=== PATIENT | female | born 1965 | race Caucasian/White ===

== ENCOUNTER 2017-05-30 11:08 | Emergency (ER) | payer MEDICAID ==
[~2017-05-30] VITALS: Ht 5367.7 cm; Wt 54.0 kg
[~2017-05-30 11:08] MED LIST: NO HOME MEDS; PROC-8 PEG; SUCR1ORA2 PO; VALA100027 PO
[2017-05-30] MEDS ORDERED: haloperidol lactate 5mg/ml inj IM ONE (12:25)
[2017-05-30] MEDS ORDERED: diphenhydrAMINE 25mg capsule PO ONE (12:25)
[2017-05-30] MEDS ORDERED: LORazepam 1 MG tablet PO ONE (12:25)
[2017-05-30 12:36] LABS: BASOPHILS # (AUTO) 0.1 X10'3 (0-0.2); BASOPHILS % (AUTO) 0.7 % (0-1); EOSINOPHILS # (AUTO) 0.2 X10'3 (0-0.9); EOSINOPHILS % (AUTO) 1.7 % (0-6); HEMATOCRIT 41.9 % (35.0-45.0); HEMOGLOBIN 14.8 g/dl (12.0-16.0); LYMPHOCYTES # (AUTO) 3.2 X10'3 (1.1-4.8); LYMPHOCYTES % (AUTO) 32.6 % (21-51); MEAN CORPUSCULAR HEMOGLOBIN 31.5 PG (27.0-31.0); MEAN CORPUSCULAR HGB CONC 35.3 % (33.0-36.5); MEAN CORPUSCULAR VOLUME 89.2 FL (78-98); MEAN PLATELET VOLUME 6.9 FL (7.4-10.4); MONOCYTES # (AUTO) 0.5 X10'3 (0-0.9); MONOCYTES % (AUTO) 5.1 % (2-12); NEUTROPHILS # (AUTO) 5.8 X10'3 (1.8-7.7); NEUTROPHILS % (AUTO) 59.9 % (42-75); PLATELET COUNT 384 X10'3 (140-440); RED BLOOD COUNT 4.69 X10'6 (4.20-5.60); RED CELL DISTRIBUTION WIDTH 13.5 % (11.5-14.5); WHITE BLOOD COUNT 9.8 X10'3 (4.5-11.0)
[2017-05-30 12:44] LABS: CLARITY,URINE CLEAR (Clear); COLOR,URINE STRAW (Yellow); GLUCOSE, URINE NEGATIVE (Neg); KETONES,URINE NEGATIVE (Neg); LEUKOCYTE ESTERASE ,URINE NEGATIVE (Neg); NITRITES, URINE NEGATIVE (Neg); OCCULT BLOOD,URINE SMALL (Neg); PROTEIN,URINE NEGATIVE (Neg); UA COLLECTION TYPE CLN CATCH MIDSTREAM; UROBILINOGEN,URINE 0.2 E.U/dL (0.2-1.0)
[2017-05-30 12:46] LABS: URINE HCG NEGATIVE (NEG)
[2017-05-30 12:51] LABS: SQUAMOUS EPITHELIAL CELL,UR FEW /LPF (FEW)
[2017-05-30 12:52] LABS: BACTERIA,URINE FEW /HPF (Neg); RBC,URINE 0-2 /HPF (0-2); WBC,URINE 0-4 /HPF (0-4)
[2017-05-30 12:55] LABS: URINE AMPHETAMINE SCREEN NEGATIVE (Neg); URINE BARBITUATE SCREEN NEGATIVE (Neg); URINE BENZODIAZEPINES SCREEN POSITIVE (Neg); URINE CANNABINOID SCREEN POSITIVE (Neg); URINE COCAINE SCREEN NEGATIVE (Neg); URINE METHADONE SCREEN NEGATIVE (Neg); URINE OPIATE SCREEN NEGATIVE (Neg); URINE PHENCYCLIDINE SCREEN NEGATIVE (Neg)
[2017-05-30 13:00] LABS: ALANINE AMINOTRANSFERASE 29 U/L (12-78); ALBUMIN 4.2 G/DL (3.4-5.0); ALKALINE PHOSPHATASE 88 IU/L (46-116); ANION GAP 9 (8-16); ASPARTATE AMINO TRANSFERASE 25 U/L (10-37); BILIRUBIN,TOTAL 0.3 MG/DL (0.1-1.0); BLOOD UREA NITROGEN 9 MG/DL (7-18); CALCIUM 9.4 MG/DL (8.5-10.1); CHLORIDE 106 MMOL/L (99-107); CREATININE 0.69 MG/DL (0.40-0.90); GLUCOSE 103 MG/DL (70-104); POTASSIUM 3.8 MMOL/L (3.5-5.1); SODIUM 142 MMOL/L (135-145); TOTAL CARBON DIOXIDE 26.7 MMOL/L (24-32); TOTAL PROTEIN 8.4 G/DL (6.4-8.2); eGFR 90 ML/MIN
[2017-05-30 13:04] LABS: ETHANOL < 0.010 GM/DL (0.0-0.010)
[2017-05-30] MEDS ORDERED: DIAZ5TAB PO (20:43)
[2017-05-30] MEDS ORDERED: MOME0.132 (20:43)
[2017-05-30] MEDS ORDERED: ALB0.5UD IH (20:43)
[2017-05-30] MEDS ORDERED: HYDR-3686 PO ×2 (20:43→21:55)
[2017-05-30] MEDS ORDERED: DULO-31 PO (20:43)
[2017-05-30] MEDS ORDERED: ALBU18HF2 IH (21:55)
[2017-05-30] MEDS: diazepam 5mg tablet PO SCH (22:35)
[2017-05-31] MEDS: albuterol 2.5 MG/3 ML nebule NEB SCH ×2 (07:10→10:47)
[2017-05-31] MEDS: diazepam 5mg tablet PO SCH ×2 (07:52→13:05)
[2017-05-31] MEDS ORDERED: duloxetine 30mg CAPSULE.DR PO SCH (08:00)
[2017-05-31 16:11] VITALS: BP 139/93
[2017-05-31] MEDS ORDERED: hydrOXYzine 25 MG tablet PO SCH (21:00)
== END 2017-05-31 14:45 ==
LOC: ER 11:09
DX: F29 Unspecified psychosis not due to a substance or known physiological condition (principal); J44.9 Chronic obstructive pulmonary disease, unspecified; G89.29 Other chronic pain; F31.9 Bipolar disorder, unspecified; F41.9 Anxiety disorder, unspecified; Z98.890 Other specified postprocedural states; F12.90 Cannabis use, unspecified, uncomplicated; Z88.8 Allergy status to other drugs, medicaments and biological substances; Z91.040 Latex allergy status; Z90.710 Acquired absence of both cervix and uterus
CPT/HCPCS: 36415; 80053; 80305; 80320; 81001; 81025; 84443; 85025; 94640; 94760; 96372; 99285; J1630; Q0163; 99284

== ENCOUNTER 2017-08-01 13:15 | Emergency (ER) | payer MEDICAID ==
[~2017-08-01] VITALS: Ht 160 cm; Wt 49.4 kg
[~2017-08-01 13:15] MED LIST changes: +ALBU18HF2 IH; +DIAZ5TAB PO; +DULO-31 PO; +HYDR-3686 PO; +MOME0.132; -NO HOME MEDS; -PROC-8 PEG; -SUCR1ORA2 PO; -VALA100027 PO
[2017-08-01 16:25] LABS: BASOPHILS % (AUTO) 0.2 % (0-1); EOSINOPHILS # (AUTO) 0.1 X10'3 (0-0.9); EOSINOPHILS % (AUTO) 1.4 % (0-6); HEMATOCRIT 42.1 % (35.0-45.0); HEMOGLOBIN 14.6 g/dl (12.0-16.0); LYMPHOCYTES # (AUTO) 2.2 X10'3 (1.1-4.8); LYMPHOCYTES % (AUTO) 22.9 % (21-51); MEAN CORPUSCULAR HEMOGLOBIN 31.4 PG (27.0-31.0); MEAN CORPUSCULAR HGB CONC 34.6 % (33.0-36.5); MEAN CORPUSCULAR VOLUME 90.7 FL (78-98); MEAN PLATELET VOLUME 7.6 FL (7.4-10.4); MONOCYTES # (AUTO) 0.4 X10'3 (0-0.9); MONOCYTES % (AUTO) 4.5 % (2-12); NEUTROPHILS # (AUTO) 6.8 X10'3 (1.8-7.7); PLATELET COUNT 356 X10'3 (140-440); RED BLOOD COUNT 4.64 X10'6 (4.20-5.60); RED CELL DISTRIBUTION WIDTH 13.9 % (11.5-14.5); WHITE BLOOD COUNT 9.6 X10'3 (4.5-11.0)
[2017-08-01 16:41] LABS: ALANINE AMINOTRANSFERASE 17 U/L (12-78); ALBUMIN 4.3 G/DL (3.4-5.0); ALBUMIN/GLOBULIN RATIO 1.2 (1.1-1.5); ALKALINE PHOSPHATASE 70 IU/L (46-116); ANION GAP 14 (8-16); ASPARTATE AMINO TRANSFERASE 13 U/L (10-37); BILIRUBIN,TOTAL 0.3 MG/DL (0.1-1.0); BLOOD UREA NITROGEN 8 MG/DL (7-18); CALCIUM 9.4 MG/DL (8.5-10.1); CHLORIDE 105 MMOL/L (99-107); CREATININE 0.73 MG/DL (0.40-0.90); GLUCOSE 147 MG/DL (70-104); LIPASE 59 U/L (73-393); MAGNESIUM 1.9 MG/DL (1.5-2.4); POTASSIUM 3.5 MMOL/L (3.5-5.1); SODIUM 143 MMOL/L (135-145); TOTAL CARBON DIOXIDE 24.5 MMOL/L (24-32); eGFR 84 ML/MIN
[2017-08-01] MEDS ORDERED: LORazepam 1 MG tablet PO ONE (17:40)
[2017-08-01] MEDS ORDERED: LORazepam 0.5 MG tablet PO ONE (17:45)
[2017-08-01 18:48] VITALS: BP 135/92
== END 2017-08-01 18:50 | disposition home or self-care (01) ==
LOC: ER 13:16
DX: R10.11 Right upper quadrant pain (principal); R07.89 Other chest pain; R06.02 Shortness of breath; J02.9 Acute pharyngitis, unspecified; R11.0 Nausea; J44.9 Chronic obstructive pulmonary disease, unspecified; G89.29 Other chronic pain; F17.200 Nicotine dependence, unspecified, uncomplicated; F12.10 Cannabis abuse, uncomplicated; Z90.710 Acquired absence of both cervix and uterus; Z98.890 Other specified postprocedural states; Z88.8 Allergy status to other drugs, medicaments and biological substances; Z91.040 Latex allergy status; Z79.899 Other long term (current) drug therapy
CPT/HCPCS: 36415; 71045; 76536; 76700; 80053; 83690; 83735; 83880; 84484; 85025; 93005; 99285

== ENCOUNTER 2017-10-03 09:44 | Emergency (ER) | payer MEDICAID ==
[~2017-10-03] VITALS: Ht 160 cm; Wt 46.0 kg
[2017-10-03 10:05] LABS: BASOPHILS # (AUTO) 0.1 X10'3 (0-0.2); BASOPHILS % (AUTO) 0.8 % (0-1); EOSINOPHILS % (AUTO) 0.4 % (0-6); HEMOGLOBIN 15.3 g/dl (12.0-16.0); LYMPHOCYTES # (AUTO) 2.1 X10'3 (1.1-4.8); LYMPHOCYTES % (AUTO) 16.6 % (21-51); MEAN CORPUSCULAR HEMOGLOBIN 31.8 PG (27.0-31.0); MEAN CORPUSCULAR VOLUME 93.5 FL (78-98); MEAN PLATELET VOLUME 7.1 FL (7.4-10.4); MONOCYTES # (AUTO) 0.5 X10'3 (0-0.9); MONOCYTES % (AUTO) 4.1 % (2-12); NEUTROPHILS % (AUTO) 78.1 % (42-75); PLATELET COUNT 336 X10'3 (140-440); RED BLOOD COUNT 4.81 X10'6 (4.20-5.60); RED CELL DISTRIBUTION WIDTH 13.9 % (11.5-14.5); WHITE BLOOD COUNT 12.8 X10'3 (4.5-11.0)
[2017-10-03] MEDS ORDERED: metoprolol tartrate 1mg/ml inj IV ONE (10:10)
[2017-10-03] MEDS ORDERED: aspirin 81mg tab.chew PO ONE (10:10)
[2017-10-03] MEDS ORDERED: ondansetron/PF 4mg/2ml inj IV ONE (10:10)
[2017-10-03 10:15] LABS: PARTIAL THROMBOPLASTIN TIME 25 SECONDS (22-32); PROTHROMBIN TIME 10.2 SECONDS (9.0-12.0)
[2017-10-03 10:20] LABS: ALANINE AMINOTRANSFERASE 15 U/L (12-78); ALBUMIN/GLOBULIN RATIO 1.1 (1.1-1.5); ALKALINE PHOSPHATASE 82 IU/L (46-116); ANION GAP 10 (8-16); ASPARTATE AMINO TRANSFERASE 12 U/L (10-37); BILIRUBIN,TOTAL 0.4 MG/DL (0.1-1.0); BLOOD UREA NITROGEN 9 MG/DL (7-18); BUN/CREATININE RATIO 12.9 (6.6-38.0); CALCIUM 9.1 MG/DL (8.5-10.1); CHLORIDE 107 MMOL/L (99-107); GLUCOSE 112 MG/DL (70-104); POTASSIUM 3.8 MMOL/L (3.5-5.1); SODIUM 142 MMOL/L (135-145); TOTAL PROTEIN 7.8 G/DL (6.4-8.2); eGFR 89 ML/MIN
[2017-10-03] MEDS: nitroGLYCERIN 0.4mg SUBLingual tab SL PRN ×2 (10:21→11:13)
[2017-10-03] MEDS ORDERED: LORazepam 2 mg/ml vial IV ONE (10:35)
[2017-10-03 10:40] LABS: CLARITY,URINE CLEAR (Clear); COLOR,URINE YELLOW (Yellow); GLUCOSE, URINE NEGATIVE (Neg); KETONES,URINE NEGATIVE (Neg); LEUKOCYTE ESTERASE ,URINE NEGATIVE (Neg); NITRITES, URINE NEGATIVE (Neg); OCCULT BLOOD,URINE TRACE-INTACT (Neg); PROTEIN,URINE NEGATIVE (Neg); UROBILINOGEN,URINE 0.2 E.U/dL (0.2-1.0)
[2017-10-03 10:44] LABS: UA COLLECTION TYPE CLN CATCH MIDSTREAM
[2017-10-03 10:46] LABS: BACTERIA,URINE NONE SEEN /HPF (Neg); MUCUS STRANDS NONE SEEN /LPF (Neg); RBC,URINE 0-2 /HPF (0-2); SQUAMOUS EPITHELIAL CELL,UR FEW /LPF (FEW); WBC,URINE NONE SEEN /HPF (0-4)
[2017-10-03 10:53] LABS: URINE AMPHETAMINE SCREEN NEGATIVE (Neg); URINE BARBITUATE SCREEN NEGATIVE (Neg); URINE BENZODIAZEPINES SCREEN NEGATIVE (Neg); URINE CANNABINOID SCREEN POSITIVE (Neg); URINE COCAINE SCREEN NEGATIVE (Neg); URINE METHADONE SCREEN NEGATIVE (Neg); URINE OPIATE SCREEN NEGATIVE (Neg); URINE PHENCYCLIDINE SCREEN NEGATIVE (Neg)
[2017-10-03] MEDS ORDERED: DULO-31 PO (10:53)
[2017-10-03] MEDS ORDERED: DIAZ5TAB PO (10:53)
[2017-10-03 11:13] VITALS: BP 135/88
== END 2017-10-03 11:14 | disposition home or self-care (01) ==
LOC: ER 09:44
DX: R07.9 Chest pain, unspecified (principal); F41.9 Anxiety disorder, unspecified; F31.9 Bipolar disorder, unspecified; J44.9 Chronic obstructive pulmonary disease, unspecified; F17.200 Nicotine dependence, unspecified, uncomplicated; F12.90 Cannabis use, unspecified, uncomplicated; Z90.710 Acquired absence of both cervix and uterus; Z91.14 Patient's other noncompliance with medication regimen; Z91.040 Latex allergy status; Z88.8 Allergy status to other drugs, medicaments and biological substances; Z79.899 Other long term (current) drug therapy
CPT/HCPCS: 36415; 71045; 80053; 80305; 81001; 83880; 84484; 85025; 85610; 85730; 93005; 96374; 96375; 99285; J2060; J2405; J7030

== ENCOUNTER 2018-08-28 12:54 | Emergency (ER) | payer MEDICAID ==
[~2018-08-28] VITALS: Ht 160 cm; Wt 63.6 kg
[2018-08-28 13:27] VITALS: BP 147/92
[2018-08-28] MEDS ORDERED: HYDROcodone/acetaminophen 10/325mg tab PO ONE (15:40)
== END 2018-08-28 16:36 | disposition home or self-care (01) ==
LOC: ER 12:54
DX: M72.2 Plantar fascial fibromatosis (principal); J44.9 Chronic obstructive pulmonary disease, unspecified; G89.29 Other chronic pain; F17.200 Nicotine dependence, unspecified, uncomplicated; F12.90 Cannabis use, unspecified, uncomplicated; Z90.710 Acquired absence of both cervix and uterus; Z98.890 Other specified postprocedural states; Z91.040 Latex allergy status; Z88.6 Allergy status to analgesic agent; Z88.8 Allergy status to other drugs, medicaments and biological substances; Z79.899 Other long term (current) drug therapy
CPT/HCPCS: 99282

== ENCOUNTER 2019-03-27 13:27 | Emergency (ER) | payer MEDICAID ==
[~2019-03-27] VITALS: Ht 165.1 cm; Wt 60.0 kg
[2019-03-27 13:53] LABS: BASOPHILS # (AUTO) 0.1 X10'3 (0-0.2); EOSINOPHILS # (AUTO) 0.1 X10'3 (0-0.9); EOSINOPHILS % (AUTO) 1.8 % (0-6); HEMATOCRIT 41.7 % (35.0-45.0); HEMOGLOBIN 14.3 g/dl (12.0-16.0); LYMPHOCYTES # (AUTO) 3.1 X10'3 (1.1-4.8); LYMPHOCYTES % (AUTO) 42.2 % (21-51); MEAN CORPUSCULAR HEMOGLOBIN 31.2 PG (27.0-31.0); MEAN CORPUSCULAR HGB CONC 34.2 g/dL (33.0-36.5); MEAN CORPUSCULAR VOLUME 91.2 FL (78-98); MONOCYTES # (AUTO) 0.5 X10'3 (0-0.9); MONOCYTES % (AUTO) 6.9 % (2-12); NEUTROPHILS # (AUTO) 3.5 X10'3 (1.8-7.7); NEUTROPHILS % (AUTO) 48.1 % (42-75); PLATELET COUNT 319 X10'3 (140-440); RED BLOOD COUNT 4.57 X10'6 (4.20-5.60); RED CELL DISTRIBUTION WIDTH 13.8 % (11.5-14.5); WHITE BLOOD COUNT 7.3 X10'3 (4.5-11.0)
[2019-03-27] MEDS ORDERED: normal saline 1000ML IV soln IVB ONE (13:55)
[2019-03-27] MEDS ORDERED: normal saline 1000ml 1,000 ML IV ONE (13:55)
[2019-03-27 14:03] LABS: PARTIAL THROMBOPLASTIN TIME 28 SECONDS (22-32)
[2019-03-27 14:05] LABS: ALANINE AMINOTRANSFERASE 16 U/L (12-78); ALBUMIN/GLOBULIN RATIO 1.2 (1.1-1.5); ALKALINE PHOSPHATASE 95 IU/L (46-116); ANION GAP 7 (8-16); ASPARTATE AMINO TRANSFERASE 14 U/L (10-37); BILIRUBIN,TOTAL 0.2 MG/DL (0.1-1.0); BLOOD UREA NITROGEN 16 MG/DL (7-18); BUN/CREATININE RATIO 19.5 (6.6-38.0); CALCIUM 8.9 MG/DL (8.5-10.1); CHLORIDE 108 MMOL/L (99-107); CREATININE 0.82 MG/DL (0.40-0.90); GLUCOSE 107 MG/DL (70-104); POTASSIUM 3.6 MMOL/L (3.5-5.1); SODIUM 140 MMOL/L (135-145); TOTAL CARBON DIOXIDE 25.5 MMOL/L (24-32); TOTAL PROTEIN 7.4 G/DL (6.4-8.2); eGFR 73 ML/MIN
[2019-03-27 14:09] LABS: ETHANOL < 0.010 GM/DL (0.0-0.010); TROPONIN I < 0.04 NG/ML (0.0-0.05)
[2019-03-27 14:43] VITALS: BP 148/95
[2019-03-27 15:28] LABS: CLARITY,URINE SLIGHTLY CLOUDY (Clear); COLOR,URINE YELLOW (Yellow); GLUCOSE, URINE NEGATIVE (Neg); KETONES,URINE NEGATIVE (Neg); LEUKOCYTE ESTERASE ,URINE SMALL (Neg); NITRITES, URINE NEGATIVE (Neg); OCCULT BLOOD,URINE TRACE-INTACT (Neg); PROTEIN,URINE NEGATIVE (Neg); UROBILINOGEN,URINE 0.2 E.U/dL (0.2-1.0)
[2019-03-27 15:30] LABS: UA COLLECTION TYPE VOIDED
[2019-03-27 15:38] LABS: URINE AMPHETAMINE SCREEN NEGATIVE (Neg); URINE BARBITUATE SCREEN NEGATIVE (Neg); URINE BENZODIAZEPINES SCREEN POSITIVE (Neg); URINE CANNABINOID SCREEN POSITIVE (Neg); URINE COCAINE SCREEN NEGATIVE (Neg); URINE METHADONE SCREEN NEGATIVE (Neg); URINE OPIATE SCREEN NEGATIVE (Neg); URINE PHENCYCLIDINE SCREEN NEGATIVE (Neg)
[2019-03-27 15:40] LABS: SQUAMOUS EPITHELIAL CELL,UR MODERATE /LPF (FEW)
[2019-03-27 15:42] LABS: BACTERIA,URINE FEW /HPF (Neg); TRANSITIONAL EPI CELLS,URINE FEW /HPF; WBC,URINE 0-4 /HPF (0-4)
[2019-03-27 15:43] LABS: RBC,URINE 0-2 /HPF (0-2)
== END 2019-03-27 15:27 | disposition home or self-care (01) ==
LOC: ER 13:28
DX: F41.9 Anxiety disorder, unspecified (principal); R55 Syncope and collapse; J44.9 Chronic obstructive pulmonary disease, unspecified; G89.29 Other chronic pain; F32.9 Major depressive disorder, single episode, unspecified; F12.90 Cannabis use, unspecified, uncomplicated; Z86.19 Personal history of other infectious and parasitic diseases; Z90.710 Acquired absence of both cervix and uterus; Z98.890 Other specified postprocedural states; Z91.040 Latex allergy status; Z88.8 Allergy status to other drugs, medicaments and biological substances; Z79.899 Other long term (current) drug therapy
CPT/HCPCS: 36415; 71045; 80053; 80305; 80320; 81001; 82140; 82948; 84484; 85025; 85610; 85730; 87088; 93005; 96360; 99284; J7030

== ENCOUNTER 2019-10-16 07:56 | Emergency (ER) | payer MEDICAID ==
[~2019-10-16] VITALS: Ht 162.6 cm; Wt 51.0 kg
[2019-10-16 08:14] VITALS: BP 176/102
[2019-10-16] MEDS ORDERED: PRED20TA PO (08:23)
[2019-10-16] MEDS ORDERED: DOXY100C43 PO (08:23)
[2019-10-16] MEDS ORDERED: ALBU8HFA PO (08:23)
== END 2019-10-16 08:42 | disposition home or self-care (01) ==
LOC: ER 07:56
DX: J20.9 Acute bronchitis, unspecified (principal); R05 Cough; J45.909 Unspecified asthma, uncomplicated; G89.29 Other chronic pain; F32.9 Major depressive disorder, single episode, unspecified; F41.9 Anxiety disorder, unspecified; F17.200 Nicotine dependence, unspecified, uncomplicated; F12.90 Cannabis use, unspecified, uncomplicated; Z86.19 Personal history of other infectious and parasitic diseases; Z98.890 Other specified postprocedural states; Z90.710 Acquired absence of both cervix and uterus; Z88.8 Allergy status to other drugs, medicaments and biological substances; Z88.6 Allergy status to analgesic agent; Z91.040 Latex allergy status; Z79.899 Other long term (current) drug therapy
CPT/HCPCS: 99283; 99406

== ENCOUNTER 2019-12-28 12:47 | Emergency (ER) | payer MEDICAID ==
[2019-12-28 12:52] VITALS: BP 149/108
[2019-12-28] MEDS ORDERED: acetaminophen 325mg tablet PO ONE (14:35)
[2019-12-28] MEDS ORDERED: LORazepam 1 MG tablet PO ONE (14:35)
== END 2019-12-28 16:08 | disposition home or self-care (01) ==
LOC: ER 12:48
DX: S80.01XA Contusion of right knee, initial encounter (principal); M25.572 Pain in left ankle and joints of left foot; F12.90 Cannabis use, unspecified, uncomplicated; J44.9 Chronic obstructive pulmonary disease, unspecified; G89.29 Other chronic pain; F41.9 Anxiety disorder, unspecified; F32.9 Major depressive disorder, single episode, unspecified; Z90.710 Acquired absence of both cervix and uterus; Z98.890 Other specified postprocedural states; Z86.19 Personal history of other infectious and parasitic diseases; Z91.040 Latex allergy status; Z88.6 Allergy status to analgesic agent; Z88.8 Allergy status to other drugs, medicaments and biological substances; Z79.899 Other long term (current) drug therapy; W10.8XXA Fall (on) (from) other stairs and steps, initial encounter; Y93.89 Activity, other specified; Y92.89 Other specified places as the place of occurrence of the external cause; Y99.8 Other external cause status
CPT/HCPCS: 29515; 73564; 73610; 99284

== ENCOUNTER 2020-07-27 12:39 | Emergency (ER) | payer MEDICAID ==
[~2020-07-27] VITALS: Ht 162.6 cm; Wt 65.9 kg
[2020-07-27 13:05] LABS: BASOPHILS % (AUTO) 0.3 % (0-1); EOSINOPHILS # (AUTO) 0.2 X10'3 (0-0.9); EOSINOPHILS % (AUTO) 1.8 % (0-6); HEMATOCRIT 43.4 % (35.0-45.0); HEMOGLOBIN 14.7 g/dl (12.0-16.0); LYMPHOCYTES % (AUTO) 32.9 % (21-51); MEAN CORPUSCULAR HEMOGLOBIN 31.1 PG (27.0-31.0); MEAN CORPUSCULAR HGB CONC 33.9 g/dL (33.0-36.5); MEAN CORPUSCULAR VOLUME 91.8 FL (78-98); MEAN PLATELET VOLUME 7.1 FL (7.4-10.4); MONOCYTES # (AUTO) 0.6 X10'3 (0-0.9); MONOCYTES % (AUTO) 6.1 % (2-12); NEUTROPHILS # (AUTO) 5.4 X10'3 (1.8-7.7); NEUTROPHILS % (AUTO) 58.9 % (42-75); PLATELET COUNT 388 X10'3 (140-440); RED BLOOD COUNT 4.73 X10'6 (4.20-5.60); WHITE BLOOD COUNT 9.1 X10'3 (4.5-11.0)
[2020-07-27 13:19] LABS: ALANINE AMINOTRANSFERASE 16 U/L (12-78); ALBUMIN 3.9 G/DL (3.4-5.0); ALKALINE PHOSPHATASE 116 IU/L (46-116); ANION GAP 14 (8-16); ASPARTATE AMINO TRANSFERASE 14 U/L (10-37); BILIRUBIN,TOTAL 0.3 MG/DL (0.1-1.0); BLOOD UREA NITROGEN 9 MG/DL (7-18); BUN/CREATININE RATIO 12.3 (6.6-38.0); CALCIUM 9.3 MG/DL (8.5-10.1); CHLORIDE 106 MMOL/L (99-107); CREATININE 0.73 MG/DL (0.40-0.90); GLUCOSE 121 MG/DL (70-104); SODIUM 143 MMOL/L (135-145); TOTAL CARBON DIOXIDE 23.3 MMOL/L (24-32); TOTAL PROTEIN 7.9 G/DL (6.4-8.2); eGFR 83 ML/MIN
[2020-07-27 13:57] LABS: CLARITY,URINE CLEAR (Clear); COLOR,URINE STRAW (Yellow); GLUCOSE, URINE NEGATIVE (Neg); KETONES,URINE NEGATIVE (Neg); LEUKOCYTE ESTERASE ,URINE NEGATIVE (Neg); NITRITES, URINE NEGATIVE (Neg); OCCULT BLOOD,URINE TRACE-INTACT (Neg); PROTEIN,URINE NEGATIVE (Neg); UROBILINOGEN,URINE 0.2 E.U/dL (0.2-1.0)
[2020-07-27 13:58] LABS: URINE HCG NEGATIVE (NEG)
[2020-07-27] MEDS ORDERED: normal saline 1000ml 1,000 ML IV ONE (14:05)
[2020-07-27 14:18] LABS: UA COLLECTION TYPE CLN CATCH MIDSTREAM
[2020-07-27 14:20] LABS: BACTERIA,URINE NONE SEEN /HPF (Neg); MUCUS STRANDS NONE SEEN /LPF (Neg); RBC,URINE NONE SEEN /HPF (0-2); SQUAMOUS EPITHELIAL CELL,UR FEW /LPF (FEW); WBC,URINE NONE SEEN /HPF (0-4)
[2020-07-27] MEDS ORDERED: morphine 2 MG/ML inj. syringe IV PRN (14:20)
[2020-07-27] MEDS ORDERED: ondansetron/PF 4mg/2ml inj IV ONE (14:20)
[2020-07-27] MEDS ORDERED: morphine 4 MG/ML inj SYRINge IV ONE (14:20)
[2020-07-27] MEDS ORDERED: metroNIDAZOLE 500mg tablet PO ONE (15:05)
[2020-07-27] MEDS ORDERED: METR-159 PO (15:06)
[2020-07-27 15:49] VITALS: BP 133/88
== END 2020-07-27 15:52 | disposition home or self-care (01) ==
LOC: ER 12:40
DX: K52.9 Noninfective gastroenteritis and colitis, unspecified (principal); J44.9 Chronic obstructive pulmonary disease, unspecified; F41.9 Anxiety disorder, unspecified; F32.9 Major depressive disorder, single episode, unspecified; G89.29 Other chronic pain; F17.200 Nicotine dependence, unspecified, uncomplicated; F12.90 Cannabis use, unspecified, uncomplicated; Z90.710 Acquired absence of both cervix and uterus; Z98.890 Other specified postprocedural states; Z86.19 Personal history of other infectious and parasitic diseases; Z91.040 Latex allergy status; Z88.6 Allergy status to analgesic agent; Z79.899 Other long term (current) drug therapy; Z88.8 Allergy status to other drugs, medicaments and biological substances
CPT/HCPCS: 36415; 74176; 80053; 81001; 81025; 85025; 96374; 96375; 96376; 99284; J2270; J2405; J7030; J3490

== ENCOUNTER 2021-03-04 13:32 | Emergency (ER) | payer MEDICAID ==
[~2021-03-04] VITALS: Ht 162.6 cm; Wt 61.8 kg
[2021-03-04 14:05] VITALS: BP 150/103
[2021-03-04] MEDS ORDERED: HYDROcodone/acetaminophen 5mg/325mg tablet PO ONE (16:15)
[2021-03-04] MEDS ORDERED: IBUP-1984 PO (16:33)
== END 2021-03-04 16:49 | disposition home or self-care (01) ==
LOC: ER 13:32
DX: M25.512 Pain in left shoulder (principal); J44.9 Chronic obstructive pulmonary disease, unspecified; G89.29 Other chronic pain; M54.9 Dorsalgia, unspecified; F31.9 Bipolar disorder, unspecified; F32.9 Major depressive disorder, single episode, unspecified; F12.10 Cannabis abuse, uncomplicated; Z91.040 Latex allergy status; Z88.6 Allergy status to analgesic agent; Z88.8 Allergy status to other drugs, medicaments and biological substances; W19.XXXA Unspecified fall, initial encounter; Y93.89 Activity, other specified; Y92.89 Other specified places as the place of occurrence of the external cause; Y99.8 Other external cause status
CPT/HCPCS: 73030; 99283

== ENCOUNTER 2021-03-14 12:48 | Emergency (ER) | payer MEDICAID ==
[~2021-03-14] VITALS: Ht 162.6 cm; Wt 60.0 kg
[2021-03-14] MEDS ORDERED: amox tr/potassium clavulanate 875/125mg TAB PO ONE (14:30)
[2021-03-14] MEDS ORDERED: HYDROcodone/acetaminophen 5mg/325mg tablet PO ONE (14:30)
[2021-03-14] MEDS ORDERED: dexamethasone sod phosphate 10mg/ml inj IM STA (14:30)
[2021-03-14] MEDS ORDERED: ondansetron 4mg rapidly disintigrating tab PO ONE (14:30)
[2021-03-14] MEDS ORDERED: AMOX-117 PO (14:35)
[2021-03-14] MEDS ORDERED: ONDA4TAB6 PO (14:35)
[2021-03-14] MEDS ORDERED: HYDR-3965 PO (14:35)
[2021-03-14 15:45] VITALS: BP 146/89
== END 2021-03-14 15:46 | disposition home or self-care (01) ==
LOC: ER 12:48
DX: L08.89 Other specified local infections of the skin and subcutaneous tissue (principal); J44.9 Chronic obstructive pulmonary disease, unspecified; G89.29 Other chronic pain; F41.9 Anxiety disorder, unspecified; F32.9 Major depressive disorder, single episode, unspecified; F12.90 Cannabis use, unspecified, uncomplicated; Z86.19 Personal history of other infectious and parasitic diseases; Z90.710 Acquired absence of both cervix and uterus; Z98.890 Other specified postprocedural states; Z91.040 Latex allergy status; Z88.6 Allergy status to analgesic agent; Z88.8 Allergy status to other drugs, medicaments and biological substances; Z79.2 Long term (current) use of antibiotics; Z79.899 Other long term (current) drug therapy
CPT/HCPCS: 96372; 99284; J1100

== ENCOUNTER 2021-06-21 22:57 | Emergency (ER) | payer MEDICAID ==
[~2021-06-21] VITALS: Ht 162.6 cm; Wt 120.0 kg
[~2021-06-21 22:57] MED LIST changes: -MOME0.132; +MOME0.132 IH; +ONDA4TAB6 PO
--- NOTE | 2021-06-22 00:25 | NUR ---
pt presents to the [place] area escorted by the police, stating, "i'm having a bad night. i only had two shots, and i don't drink. I lost my mom on Christiane's day, i used to call her everyday, and i tried calling her today, and could not reach her. I suddenly hit me that she is gone; I can't sleep at night." States she was brought in by the flat clothier because [place] rail [place]. the pt is a/o, nad, skin w/d. urine cup provided.
[2021-06-22] MEDS ORDERED: hydrOXYzine 10 MG tablet PO STA (01:51)
[2021-06-22] MEDS ORDERED: diazepam 5mg tablet PO ONE (01:55)
[2021-06-22 02:19] LABS: BASOPHILS % (AUTO) 0.6 % (0-1); EOSINOPHILS # (AUTO) 0.1 X10'3 (0-0.9); EOSINOPHILS % (AUTO) 1.9 % (0-6); HEMATOCRIT 43.4 % (35.0-45.0); HEMOGLOBIN 14.3 g/dl (12.0-16.0); LYMPHOCYTES # (AUTO) 2.9 X10'3 (1.1-4.8); LYMPHOCYTES % (AUTO) 45.5 % (21-51); MEAN CORPUSCULAR HEMOGLOBIN 29.9 PG (27.0-31.0); MEAN CORPUSCULAR HGB CONC 33.1 g/dL (33.0-36.5); MEAN CORPUSCULAR VOLUME 90.4 FL (78-98); MEAN PLATELET VOLUME 6.9 FL (7.4-10.4); MONOCYTES # (AUTO) 0.5 X10'3 (0-0.9); MONOCYTES % (AUTO) 8.2 % (2-12); NEUTROPHILS # (AUTO) 2.8 X10'3 (1.8-7.7); NEUTROPHILS % (AUTO) 43.8 % (42-75); PLATELET COUNT 364 X10'3 (140-440); RED CELL DISTRIBUTION WIDTH 13.6 % (11.5-14.5); WHITE BLOOD COUNT 6.3 X10'3 (4.5-11.0)
[2021-06-22] MEDS ORDERED: hydrOXYzine 25 MG tablet PO PRN ×2 (02:25→02:40)
[2021-06-22 02:36] LABS: ALANINE AMINOTRANSFERASE 12 U/L (12-78); ALBUMIN 3.9 G/DL (3.4-5.0); ALKALINE PHOSPHATASE 88 IU/L (46-116); ANION GAP 13 (8-16); ASPARTATE AMINO TRANSFERASE 14 U/L (10-37); BILIRUBIN,TOTAL 0.1 MG/DL (0.1-1.0); BLOOD UREA NITROGEN 9 MG/DL (7-18); BUN/CREATININE RATIO 16.1 (6.6-38.0); CALCIUM 8.6 MG/DL (8.5-10.1); CHLORIDE 109 MMOL/L (99-107); CREATININE 0.56 MG/DL (0.40-0.90); ETHANOL 0.051 GM/DL (0.0-0.010); GLUCOSE 103 MG/DL (70-104); POTASSIUM 3.6 MMOL/L (3.5-5.1); SODIUM 146 MMOL/L (135-145); TOTAL CARBON DIOXIDE 23.7 MMOL/L (24-32); TOTAL PROTEIN 7.7 G/DL (6.4-8.2); eGFR > 90 ML/MIN
[2021-06-22 02:46] LABS: URINE HCG NEGATIVE (NEG)
[2021-06-22 03:02] LABS: URINE AMPHETAMINE SCREEN NEGATIVE (Neg); URINE BARBITUATE SCREEN NEGATIVE (Neg); URINE BENZODIAZEPINES SCREEN POSITIVE (Neg); URINE CANNABINOID SCREEN POSITIVE (Neg); URINE COCAINE SCREEN NEGATIVE (Neg); URINE METHADONE SCREEN NEGATIVE (Neg); URINE OPIATE SCREEN NEGATIVE (Neg); URINE PHENCYCLIDINE SCREEN NEGATIVE (Neg)
[2021-06-22] MEDS ORDERED: LORazepam 1 MG tablet PO ONE (04:10)
--- NOTE | 2021-06-22 04:30 | NUR ---
pt refusing to allow covid+ swab; after explaining to her the reason for the test, the pt agreed
--- NOTE | 2021-06-22 04:45 | NUR ---
pt medicated per mar, warm blanket provided per request.
--- NOTE | 2021-06-22 04:45 | NUR ---
pt standing at door, inquiring about her status, provided education and redirection to pt., she calmly returned to her room and layed on her bed.
[2021-06-22] MEDS ORDERED: albuterol 2.5 MG/3 ML nebule NEB PRN (05:45)
--- NOTE | 2021-06-22 05:46 | NUR ---
Patient arrived on the unit in no obvious distress. No physical complaint made. Patient is breathing spontanously on room air. Patient states that she is feeling abit relief now. Patient denies having any suicidal ideation at this time.
--- NOTE | 2021-06-22 06:00 | NUR ---
ASSUMED CARE FROM OFF GOING NURSE PATRICIO RN. PT. VISIBLE LYING IN BED WITH COVER OVER HEAD. VISIBLE RISE AND FALL OF CHEST NOTED. STAFF WILL CONTINUE TO MONITOR .
[2021-06-22 07:27] LABS: CLARITY,URINE CLEAR (Clear); GLUCOSE, URINE NEGATIVE (Neg); KETONES,URINE NEGATIVE (Neg); LEUKOCYTE ESTERASE ,URINE NEGATIVE (Neg); NITRITES, URINE NEGATIVE (Neg); OCCULT BLOOD,URINE SMALL (Neg); PH,URINE 5.5 (4.8-8.0); PROTEIN,URINE NEGATIVE (Neg); UROBILINOGEN,URINE 0.2 E.U/dL (0.2-1.0)
[2021-06-22 07:33] LABS: COLOR,URINE STRAW (Yellow); UA COLLECTION TYPE NON-SPECIFIED
[2021-06-22 07:34] LABS: BACTERIA,URINE FEW /HPF (Neg); RBC,URINE 0-2 /HPF (0-2); SQUAMOUS EPITHELIAL CELL,UR FEW /LPF (FEW); WBC,URINE 0-4 /HPF (0-4)
[2021-06-22] MEDS ORDERED: duloxetine 30mg CAPSULE.DR PO SCH ×2 (08:00)
[2021-06-22] MEDS: ondansetron 4mg rapidly disintigrating tab PO SCH ×2 (08:00→10:03)
[2021-06-22] MEDS ORDERED: diazepam 5mg tablet PO SCH (08:00)
[2021-06-22] MEDS ORDERED: diazepam 5mg tablet PO PRN (08:00)
--- NOTE | 2021-06-22 08:20 | NUR ---
BREAKFAST TRAY AT BEDSIDE.
--- NOTE | 2021-06-22 10:00 | NUR ---
PT. SITTING IN BED EATING BREAKFAST. DENIES ANY CURRENT THOUGTHS OF SI/HI OR A/V HALLUCINATIONS. COMPLIANT WITH MORNING MEDICATIONS. CALM AND COOPERATIVE WITH ASSESSMENT. STAFF WILL CONTINUE TO MONITOR FOR SAFTEY.
--- NOTE | 2021-06-22 10:59 | NUR ---
[facility] AT BEDSIDE TO EVALUATE .
[2021-06-22 12:10] VITALS: BP 128/81
--- NOTE | 2021-06-22 12:13 | NUR ---
PT. DISCHARGED TO HOME WITH FAMILY.
[2021-06-22] MEDS ORDERED: hydrOXYzine 25 MG tablet PO SCH (21:00)
== END 2021-06-22 12:14 | disposition home or self-care (01) ==
LOC: EEVIPCON 22:57 → ER 22:57
DX: R45.851 Suicidal ideations (principal); Z20.822 Contact with and (suspected) exposure to COVID-19; R51.9 Headache, unspecified; J44.9 Chronic obstructive pulmonary disease, unspecified; G89.29 Other chronic pain; F41.9 Anxiety disorder, unspecified; F12.90 Cannabis use, unspecified, uncomplicated; Z86.19 Personal history of other infectious and parasitic diseases; Z90.710 Acquired absence of both cervix and uterus; Z98.890 Other specified postprocedural states; Z91.040 Latex allergy status; Z88.6 Allergy status to analgesic agent; Z88.8 Allergy status to other drugs, medicaments and biological substances; Z79.899 Other long term (current) drug therapy
CPT/HCPCS: 36415; 80053; 80305; 80320; 81001; 81025; 84443; 85025; 87635; 99285; C9803; Q0177

== ENCOUNTER 2022-03-13 13:47 | Emergency (ER) | payer MEDICAID ==
[~2022-03-13] VITALS: Ht 162.6 cm; Wt 59.0 kg
[2022-03-13] MEDS ORDERED: normal saline 1000ML IV soln IVB ONE ×2 (18:00→18:55)
[2022-03-13] MEDS ORDERED: dexamethasone sod phosphate 10mg/ml inj IV STA (18:00)
[2022-03-13] MEDS ORDERED: iohexol 300mg/ml 100ml inj. ONE (18:17)
[2022-03-13] MEDS ORDERED: ketorolac trometh inj. 60 MG/2 ML VIAL IM ONE (18:20)
[2022-03-13 18:28] LABS: BASOPHILS % (AUTO) 0.5 % (0-1); EOSINOPHILS # (AUTO) 0.1 X10'3 (0-0.9); EOSINOPHILS % (AUTO) 1.7 % (0-6); HEMATOCRIT 42.3 % (35.0-45.0); HEMOGLOBIN 14.1 g/dl (12.0-16.0); LYMPHOCYTES # (AUTO) 3.4 X10'3 (1.1-4.8); LYMPHOCYTES % (AUTO) 38.6 % (21-51); MEAN CORPUSCULAR HEMOGLOBIN 30.4 PG (27.0-31.0); MEAN CORPUSCULAR HGB CONC 33.3 g/dL (33.0-36.5); MEAN CORPUSCULAR VOLUME 91.2 FL (78-98); MEAN PLATELET VOLUME 6.9 FL (7.4-10.4); MONOCYTES # (AUTO) 0.7 X10'3 (0-0.9); MONOCYTES % (AUTO) 7.5 % (2-12); NEUTROPHILS # (AUTO) 4.6 X10'3 (1.8-7.7); NEUTROPHILS % (AUTO) 51.7 % (42-75); PLATELET COUNT 326 X10'3 (140-440); RED BLOOD COUNT 4.64 X10'6 (4.20-5.60); RED CELL DISTRIBUTION WIDTH 13.4 % (11.5-14.5); WHITE BLOOD COUNT 8.9 X10'3 (4.5-11.0)
[2022-03-13 18:38] LABS: ALANINE AMINOTRANSFERASE 16 U/L (12-78); ALBUMIN 3.8 G/DL (3.4-5.0); ALKALINE PHOSPHATASE 90 IU/L (46-116); ANION GAP 9 (8-16); ASPARTATE AMINO TRANSFERASE 18 U/L (10-37); BILIRUBIN,TOTAL 0.2 MG/DL (0.1-1.0); BLOOD UREA NITROGEN 12 MG/DL (7-18); BUN/CREATININE RATIO 14.5 (6.6-38.0); C-REACTIVE PROTEIN 0.47 MG/DL (0.0-0.5); CALCIUM 9.3 MG/DL (8.5-10.1); CHLORIDE 108 MMOL/L (99-107); CREATININE 0.83 MG/DL (0.40-0.90); GLUCOSE 101 MG/DL (70-104); POTASSIUM 3.8 MMOL/L (3.5-5.1); SODIUM 143 MMOL/L (135-145); TOTAL CARBON DIOXIDE 25.6 MMOL/L (24-32); TOTAL PROTEIN 7.5 G/DL (6.4-8.2); eGFR 71 ML/MIN
[2022-03-13 18:48] VITALS: BP 146/86
--- NOTE | 2022-03-13 19:16 | NUR ---
XRAY AT BS
[2022-03-13] MEDS ORDERED: PANT-47 PO (19:45)
[2022-03-13] MEDS ORDERED: PRED10TA23 PO (19:45)
== END 2022-03-13 20:09 | disposition home or self-care (01) ==
LOC: ER 13:48
DX: J39.2 Other diseases of pharynx (principal); R49.0 Dysphonia; J02.9 Acute pharyngitis, unspecified; R53.83 Other fatigue; J44.9 Chronic obstructive pulmonary disease, unspecified; G89.29 Other chronic pain; F41.9 Anxiety disorder, unspecified; F32.A Depression, unspecified; F12.90 Cannabis use, unspecified, uncomplicated; Z86.19 Personal history of other infectious and parasitic diseases; Z90.710 Acquired absence of both cervix and uterus; Z98.890 Other specified postprocedural states; Z91.040 Latex allergy status; Z88.6 Allergy status to analgesic agent; Z88.8 Allergy status to other drugs, medicaments and biological substances; Z79.899 Other long term (current) drug therapy
CPT/HCPCS: 36415; 70491; 71045; 80053; 85025; 85651; 86140; 87081; 87880; 96372; 96374; 99285; J1100; J1885; J3490; J7030; Q9967

== ENCOUNTER 2022-05-16 12:23 | Emergency (ER) | payer MEDICAID ==
[~2022-05-16] VITALS: Ht 162.6 cm; Wt 61.4 kg
[~2022-05-16 12:23] MED LIST changes: +PANT-47 PO
[2022-05-16 12:26] VITALS: BP 135/90
--- NOTE | 2022-05-16 13:05 | NUR ---
Bilateral ankle braces applied to patient per provider verbal order. Instructions given to patient, patient demonstrates understanding. No questions or concerns about use of ankle braces.
[2022-05-16] MEDS ORDERED: HYDR-3965 PO (13:19)
[2022-05-16] MEDS ORDERED: ONDA4TAB12 PO (13:19)
== END 2022-05-16 13:29 | disposition home or self-care (01) ==
LOC: ER 12:24
DX: M25.571 Pain in right ankle and joints of right foot (principal); M25.572 Pain in left ankle and joints of left foot; J45.909 Unspecified asthma, uncomplicated; G89.29 Other chronic pain; F41.9 Anxiety disorder, unspecified; F32.9 Major depressive disorder, single episode, unspecified; F12.90 Cannabis use, unspecified, uncomplicated; Z90.710 Acquired absence of both cervix and uterus; Z98.890 Other specified postprocedural states; Z91.040 Latex allergy status; Z88.8 Allergy status to other drugs, medicaments and biological substances; Z88.6 Allergy status to analgesic agent; Z79.899 Other long term (current) drug therapy
CPT/HCPCS: 29540; 99283; L1930

== ENCOUNTER 2022-05-29 14:01 | Emergency (ER) | payer MEDICAID ==
[~2022-05-29] VITALS: Ht 162.6 cm; Wt 62.3 kg
[~2022-05-29 14:01] MED LIST changes: +ONDA4TAB12 PO
[2022-05-29 14:29] VITALS: BP 135/100
[2022-05-29] MEDS ORDERED: ondansetron 4mg rapidly disintigrating tab PO ONE (15:30)
[2022-05-29] MEDS ORDERED: ketorolac trometh inj. 60 MG/2 ML VIAL IM ONE (15:30)
[2022-05-29] MEDS ORDERED: AMOX-117 PO (15:33)
--- NOTE | 2022-05-29 16:07 | NUR ---
PT WAS SEEN, TREATED, AND DC'D BY PROVIDER PRIOR TO [facility] [facility]IGHER
== END 2022-05-29 16:07 | disposition home or self-care (01) ==
LOC: ER 14:02
DX: S61.234A Puncture wound without foreign body of right ring finger without damage to nail, initial encounter (principal); S61.236A Puncture wound without foreign body of right little finger without damage to nail, initial encounter; J44.9 Chronic obstructive pulmonary disease, unspecified; F41.9 Anxiety disorder, unspecified; F32.9 Major depressive disorder, single episode, unspecified; F12.90 Cannabis use, unspecified, uncomplicated; Z86.19 Personal history of other infectious and parasitic diseases; Z90.710 Acquired absence of both cervix and uterus; Z98.890 Other specified postprocedural states; Z91.040 Latex allergy status; Z88.8 Allergy status to other drugs, medicaments and biological substances; Z79.899 Other long term (current) drug therapy; W54.0XXA Bitten by dog, initial encounter; Y93.89 Activity, other specified; Y92.89 Other specified places as the place of occurrence of the external cause; Y99.8 Other external cause status
CPT/HCPCS: 73130; 96372; 99283; J1885

== ENCOUNTER 2022-08-14 14:53 | Emergency (ER) | payer MEDICAID ==
[~2022-08-14] VITALS: Ht 162.6 cm; Wt 68.2 kg
[2022-08-14 14:58] VITALS: BP 168/107
[2022-08-14] MEDS ORDERED: TETanus/Pertussis (Acell)/Diphther VAC/PF (Tdap-Adult) 0.5ml syringe IMVAC ONE (16:40)
[2022-08-14] MEDS ORDERED: HYDROcodone/acetaminophen 10/325mg tab PO ONE (16:40)
[2022-08-14] MEDS ORDERED: LIDOcaine 1% W/epiNEPHrine 1:100,000 20ml vial IJ ONE (16:43)
[2022-08-14] MEDS ORDERED: ondansetron 4mg rapidly disintigrating tab PO ONE ×2 (17:05→17:40)
[2022-08-14] MEDS ORDERED: morphine 4 MG/ML inj SYRINge IM STA (17:38)
[2022-08-14] MEDS ORDERED: amox tr/potassium clavulanate 875/125mg TAB PO STA (18:13)
[2022-08-14] MEDS ORDERED: AMOX-117 PO (18:21)
== END 2022-08-14 18:37 | disposition home or self-care (01) ==
LOC: ER 14:54
DX: S61.411A Laceration without foreign body of right hand, initial encounter (principal); J44.9 Chronic obstructive pulmonary disease, unspecified; F12.90 Cannabis use, unspecified, uncomplicated; Z91.040 Latex allergy status; Z88.6 Allergy status to analgesic agent; Z90.710 Acquired absence of both cervix and uterus; W54.0XXA Bitten by dog, initial encounter; Y93.89 Activity, other specified; Y92.89 Other specified places as the place of occurrence of the external cause; Y99.8 Other external cause status
CPT/HCPCS: 12041; 90471; 90715; 96372; 99284; J2270; A6258; A6449

== ENCOUNTER 2022-09-04 16:20 | Emergency (ER) | payer MEDICAID ==
[~2022-09-04] VITALS: Ht 162.6 cm; Wt 64.4 kg
[2022-09-04 17:41] LABS: BASOPHILS # (AUTO) 0.1 X10'3 (0-0.2); BASOPHILS % (AUTO) 0.5 % (0-1); EOSINOPHILS # (AUTO) 0.2 X10'3 (0-0.9); EOSINOPHILS % (AUTO) 1.4 % (0-6); HEMATOCRIT 45.5 % (35.0-45.0); LYMPHOCYTES # (AUTO) 4.7 X10'3 (1.1-4.8); LYMPHOCYTES % (AUTO) 42.3 % (21-51); MEAN CORPUSCULAR HEMOGLOBIN 29.5 PG (27.0-31.0); MEAN CORPUSCULAR VOLUME 89.3 FL (78-98); MEAN PLATELET VOLUME 6.9 FL (7.4-10.4); MONOCYTES # (AUTO) 0.9 X10'3 (0-0.9); MONOCYTES % (AUTO) 7.8 % (2-12); NEUTROPHILS # (AUTO) 5.3 X10'3 (1.8-7.7); PLATELET COUNT 394 X10'3 (140-440); RED CELL DISTRIBUTION WIDTH 14.1 % (11.5-14.5)
[2022-09-04 17:59] LABS: ALANINE AMINOTRANSFERASE 17 U/L (12-78); ALBUMIN 4.1 G/DL (3.4-5.0); ALBUMIN/GLOBULIN RATIO 1.1 (1.1-1.5); ALKALINE PHOSPHATASE 113 IU/L (46-116); ANION GAP 10 (8-16); ASPARTATE AMINO TRANSFERASE 17 U/L (10-37); BILIRUBIN,TOTAL 0.3 MG/DL (0.1-1.0); BLOOD UREA NITROGEN 15 MG/DL (7-18); BUN/CREATININE RATIO 18.1 (10.0-20.0); CALCIUM 9.5 MG/DL (8.5-10.1); CHLORIDE 105 MMOL/L (99-107); CREATININE 0.83 MG/DL (0.40-0.90); GLUCOSE 105 MG/DL (70-104); POTASSIUM 3.6 MMOL/L (3.5-5.1); SODIUM 141 MMOL/L (135-145); TOTAL CARBON DIOXIDE 25.8 MMOL/L (24-32); TOTAL PROTEIN 7.8 G/DL (6.4-8.2); eGFR 71 ML/MIN
[2022-09-04 18:04] LABS: LIPASE 73 U/L (73-393)
[2022-09-04 19:27] LABS: CLARITY,URINE SLIGHTLY CLOUDY (Clear); COLOR,URINE YELLOW (Yellow); GLUCOSE, URINE NEGATIVE (Neg); KETONES,URINE NEGATIVE (Neg); LEUKOCYTE ESTERASE ,URINE NEGATIVE (Neg); NITRITES, URINE NEGATIVE (Neg); OCCULT BLOOD,URINE MODERATE (Neg); PH,URINE 5.5 (4.8-8.0); PROTEIN,URINE TRACE mg/dl (Neg); UROBILINOGEN,URINE 0.2 E.U/dL (0.2-1.0)
[2022-09-04 19:35] LABS: UA COLLECTION TYPE CLN CATCH MIDSTREAM
[2022-09-04 19:44] LABS: SQUAMOUS EPITHELIAL CELL,UR MANY /LPF (FEW)
[2022-09-04 19:45] LABS: MUCUS STRANDS MANY /LPF (Neg)
[2022-09-04 19:47] LABS: AMORPHOUS URATES 1+; BACTERIA,URINE 1+ /HPF (Neg)
[2022-09-04 19:48] LABS: CAL OXALATE CRYSTALS 1+ /HPF (NEGATIVE); RBC,URINE 0-2 /HPF (0-2)
[2022-09-04 19:49] LABS: TRANSITIONAL EPI CELLS,URINE FEW /HPF
[2022-09-04] MEDS ORDERED: normal saline 1000ML IV soln IVB ONE (19:50)
[2022-09-04] MEDS ORDERED: pantoprazole 40mg IV 80 MG in normal saline 100ml IV soln 100 ML IV ONE (19:55)
[2022-09-04 20:26] LABS: ETHANOL < 0.010 GM/DL (0.0-0.010); MAGNESIUM 1.8 MG/DL (1.5-2.4)
[2022-09-04 20:28] LABS: APTT 31 SECONDS (22-32)
[2022-09-04] MEDS ORDERED: morphine 2 MG/ML inj. syringe IV ONE (20:35)
[2022-09-04] MEDS ORDERED: ondansetron/PF 4mg/2ml inj IV ONE (20:50)
[2022-09-04 22:30] VITALS: BP 137/86
[2022-09-04] MEDS ORDERED: PANT20TA18 PO (23:02)
[2022-09-04 23:16] LABS: OCCULT BLOOD STOOL NEGATIVE (Neg)
[2022-09-04 23:17] LABS: OCCULT BLOOD STOOL NEGATIVE (Neg)
== END 2022-09-04 23:21 | disposition home or self-care (01) ==
LOC: ER 16:20
DX: K29.00 Acute gastritis without bleeding (principal); J44.9 Chronic obstructive pulmonary disease, unspecified; F12.90 Cannabis use, unspecified, uncomplicated; Z91.030 Bee allergy status; Z88.8 Allergy status to other drugs, medicaments and biological substances; Z90.710 Acquired absence of both cervix and uterus
CPT/HCPCS: 36415; 80053; 80320; 81001; 82272; 83690; 83735; 84484; 85025; 85610; 85730; 86885; 86900; 86901; 86920; 96361; 96365; 96375; 99285; C9113; J2270; J2405; J3490; J7030

== ENCOUNTER 2023-02-26 12:12 | Emergency (ER) | payer MEDICAID ==
[~2023-02-26] VITALS: Ht 162.6 cm; Wt 64.2 kg
[~2023-02-26 12:12] MED LIST changes: +PANT20TA18 PO
[2023-02-26 12:43] VITALS: TEMP 98.5
[2023-02-26 13:31] LABS: BILIRUBIN,URINE NEGATIVE (Neg); CLARITY,URINE CLEAR (Clear); COLOR,URINE YELLOW (Yellow); GLUCOSE, URINE NEGATIVE (Neg); KETONES,URINE NEGATIVE (Neg); LEUKOCYTE ESTERASE ,URINE NEGATIVE (Neg); NITRITES, URINE NEGATIVE (Neg); OCCULT BLOOD,URINE TRACE-INTACT (Neg); PROTEIN,URINE NEGATIVE (Neg); UROBILINOGEN,URINE 0.2 E.U/dL (0.2-1.0)
[2023-02-26 13:33] LABS: BASOPHILS % (AUTO) 0.5 % (0-1); EOSINOPHILS # (AUTO) 0.1 X10'3 (0-0.9); EOSINOPHILS % (AUTO) 1.4 % (0-6); HEMATOCRIT 45.8 % (35.0-45.0); HEMOGLOBIN 15.4 g/dl (12.0-16.0); LYMPHOCYTES # (AUTO) 2.9 X10'3 (1.1-4.8); LYMPHOCYTES % (AUTO) 32.4 % (21-51); MEAN CORPUSCULAR HEMOGLOBIN 30.6 PG (27.0-31.0); MEAN CORPUSCULAR HGB CONC 33.6 g/dL (33.0-36.5); MEAN CORPUSCULAR VOLUME 91.1 FL (78-98); MEAN PLATELET VOLUME 6.8 FL (7.4-10.4); MONOCYTES # (AUTO) 0.6 X10'3 (0-0.9); MONOCYTES % (AUTO) 6.7 % (2-12); NEUTROPHILS # (AUTO) 5.3 X10'3 (1.8-7.7); PLATELET COUNT 370 X10'3 (140-440); RED BLOOD COUNT 5.03 X10'6 (4.20-5.60); RED CELL DISTRIBUTION WIDTH 13.9 % (11.5-14.5)
[2023-02-26 13:37] LABS: UA COLLECTION TYPE CLN CATCH MIDSTREAM
[2023-02-26 13:47] LABS: ALANINE AMINOTRANSFERASE 15 U/L (12-78); ALBUMIN/GLOBULIN RATIO 1.1 (1.1-1.5); ALKALINE PHOSPHATASE 101 IU/L (46-116); ANION GAP 10 (8-16); ASPARTATE AMINO TRANSFERASE 22 U/L (10-37); BILIRUBIN,TOTAL 0.3 MG/DL (0.1-1.0); BLOOD UREA NITROGEN 7 MG/DL (7-18); BUN/CREATININE RATIO 9.7 (10.0-20.0); CALCIUM 9.3 MG/DL (8.5-10.1); CHLORIDE 105 MMOL/L (99-107); CREATININE 0.72 MG/DL (0.40-0.90); GLUCOSE 95 MG/DL (70-104); LIPASE 39 U/L (16-77); SODIUM 140 MMOL/L (135-145); TOTAL CARBON DIOXIDE 24.9 MMOL/L (24-32); TOTAL PROTEIN 7.8 G/DL (6.4-8.2); eCRCL 75 ML/MIN; eGFR 84 ML/MIN
[2023-02-26 13:55] LABS: SQUAMOUS EPITHELIAL CELL,UR FEW /LPF (FEW)
[2023-02-26 13:56] LABS: BACTERIA,URINE FEW /HPF (Neg); RBC,URINE 0-2 /HPF (0-2); WBC,URINE 0-4 /HPF (0-4)
[2023-02-26] MEDS ORDERED: ondansetron/PF 4mg/2ml inj IV ONE (14:55)
[2023-02-26] MEDS ORDERED: morphine 4 MG/ML inj SYRINge IV ONE (14:55)
--- NOTE | 2023-02-26 15:56 | NUR ---
[employer] WORKER assessment reviewed by RN.
[2023-02-26 16:10] VITALS: BP 157/98; PULSE 69; RESP 18; O2SAT 95
== END 2023-02-26 16:10 | disposition home or self-care (01) ==
LOC: ER 12:14
DX: K29.70 Gastritis, unspecified, without bleeding (principal); J44.9 Chronic obstructive pulmonary disease, unspecified; F12.90 Cannabis use, unspecified, uncomplicated; Z91.040 Latex allergy status; Z88.8 Allergy status to other drugs, medicaments and biological substances; Z88.6 Allergy status to analgesic agent; Z88.5 Allergy status to narcotic agent; Z79.899 Other long term (current) drug therapy; Z90.710 Acquired absence of both cervix and uterus
CPT/HCPCS: 36415; 76700; 80053; 81001; 83690; 85025; 96374; 96375; 99285; J2270; J2405

== ENCOUNTER 2023-09-29 13:03 | Emergency (ER) | payer MEDICAID ==
[~2023-09-29] VITALS: Ht 162.6 cm; Wt 63.6 kg
[2023-09-29 13:08] VITALS: TEMP 97.9
[2023-09-29 14:38] VITALS: BP 156/103; PULSE 89; O2SAT 96
[2023-09-29 14:40] VITALS: RESP 16
[2023-09-29] MEDS: HYDROcodone/acetaminophen 5mg/325mg tablet PO ONE (15:33)
[2023-09-29] MEDS: ondansetron 4mg rapidly disintigrating tab PO ONE (15:33)
[2023-09-29] MEDS ORDERED: HYDR-3965 PO (16:07)
[2023-09-29] MEDS ORDERED: ONDA8TAB13 PO (16:07)
== END 2023-09-29 16:45 | disposition home or self-care (01) ==
LOC: ER 13:03
DX: S16.1XXA Strain of muscle, fascia and tendon at neck level, initial encounter (principal); S40.012A Contusion of left shoulder, initial encounter; S80.12XA Contusion of left lower leg, initial encounter; S09.8XXA Other specified injuries of head, initial encounter; J45.909 Unspecified asthma, uncomplicated; J44.9 Chronic obstructive pulmonary disease, unspecified; G89.29 Other chronic pain; F41.9 Anxiety disorder, unspecified; F32.A Depression, unspecified; F41.0 Panic disorder [episodic paroxysmal anxiety]; F12.90 Cannabis use, unspecified, uncomplicated; Z88.8 Allergy status to other drugs, medicaments and biological substances; Z90.710 Acquired absence of both cervix and uterus; Z98.890 Other specified postprocedural states; Z91.040 Latex allergy status; Z79.899 Other long term (current) drug therapy; Z79.2 Long term (current) use of antibiotics; W18.31XA Fall on same level due to stepping on an object, initial encounter; Y93.89 Activity, other specified; Y92.89 Other specified places as the place of occurrence of the external cause; Y99.8 Other external cause status
CPT/HCPCS: 70450; 72125; 73030; 73590; 99284

== ENCOUNTER 2023-12-07 10:55 | Emergency (ER) | payer MEDICAID ==
[~2023-12-07] VITALS: Ht 162.6 cm; Wt 55.9 kg
[~2023-12-07 10:55] MED LIST changes: +ONDA-243 PO; +ONDA-245 PO; -ONDA4TAB12 PO
[2023-12-07 11:06] VITALS: TEMP 98.5
[2023-12-07] MEDS: ondansetron 4mg rapidly disintigrating tab PO ONE ×2 (11:20→13:10)
[2023-12-07] MEDS: HYDROcodone/acetaminophen 10/325mg tab PO ONE (11:59)
[2023-12-07] MEDS: morphine 4 MG/ML inj SYRINge IM ONE (13:10)
[2023-12-07] MEDS: LIDOcaine 1% W/epiNEPHrine 1:100,000 20ml vial SQ ONE (13:11)
[2023-12-07] MEDS ORDERED: HYDR-3965 PO (13:34)
[2023-12-07 13:56] VITALS: BP 132/76; PULSE 78; RESP 15; O2SAT 98
[2023-12-10] MEDS ORDERED: TRAM50TA2 PO (12:54)
== END 2023-12-07 14:08 | disposition home or self-care (01) ==
LOC: ER 10:55
DX: S62.314A Displaced fracture of base of fourth metacarpal bone, right hand, initial encounter for closed fracture (principal); S62.316A Displaced fracture of base of fifth metacarpal bone, right hand, initial encounter for closed fracture; J44.9 Chronic obstructive pulmonary disease, unspecified; F41.9 Anxiety disorder, unspecified; F32.A Depression, unspecified; Z91.040 Latex allergy status; Z88.8 Allergy status to other drugs, medicaments and biological substances; Z79.899 Other long term (current) drug therapy; Z90.710 Acquired absence of both cervix and uterus; W19.XXXA Unspecified fall, initial encounter; Y93.89 Activity, other specified; Y92.89 Other specified places as the place of occurrence of the external cause; Y99.8 Other external cause status
CPT/HCPCS: 26605; 73110; 73120; 96372; 99284; J2270; J3490; A4565; A6446; A6449

== ENCOUNTER 2024-02-10 14:03 | Outpatient (CLI) | payer MEDICAID | END 2024-02-10 23:59 | disposition home or self-care (01) | LOC: RAD 14:03 | PROVIDERS: ATTEND Orthopaedic Surgery | DX: M19.041 Primary osteoarthritis, right hand (principal); S62.319D Displaced fracture of base of unspecified metacarpal bone, subsequent encounter for fracture with routine healing; X58.XXXD Exposure to other specified factors, subsequent encounter | CPT/HCPCS: 73130 ==

== ENCOUNTER 2024-06-29 13:04 | Emergency (ER) | payer MEDICAID ==
[~2024-06-29] VITALS: Ht 160 cm; Wt 62.9 kg
[2024-06-29] MEDS: ondansetron 4mg rapidly disintigrating tab PO ONE (18:24)
[2024-06-29] MEDS: HYDROcodone/acetaminophen 5mg/325mg tablet PO ONE (19:58)
[2024-06-29] MEDS: ketorolac trometh 15mg/ml vial 15 MG/ML ML IM ONE (19:59)
[2024-06-29 20:15] VITALS: BP 142/98; PULSE 82; RESP 18; TEMP 98.7; O2SAT 98
== END 2024-06-29 20:16 | disposition home or self-care (01) ==
LOC: ER 13:05
DX: S62.306A Unspecified fracture of fifth metacarpal bone, right hand, initial encounter for closed fracture (principal); J44.9 Chronic obstructive pulmonary disease, unspecified; F41.9 Anxiety disorder, unspecified; F32.A Depression, unspecified; F12.90 Cannabis use, unspecified, uncomplicated; Z88.5 Allergy status to narcotic agent; Z88.6 Allergy status to analgesic agent; Z88.8 Allergy status to other drugs, medicaments and biological substances; Z90.710 Acquired absence of both cervix and uterus; X58.XXXA Exposure to other specified factors, initial encounter; Y93.89 Activity, other specified; Y92.89 Other specified places as the place of occurrence of the external cause; Y99.8 Other external cause status
CPT/HCPCS: 29125; 73130; 96372; 99284; J1885; A6446; A6449